=== PATIENT | female | born 1965 | race Caucasian/White ===

== ENCOUNTER 2023-06-08 08:47 | Emergency (ER) | payer BC, SELFPAY ==
--- NOTE | ~2023-06-08 | CT_ITS ---
EXAMINATION: CT cervical spine wo con DATE: 06/08/2023 12:12 INDICATION: Neck pain TECHNIQUE: Computed tomography (CT) of the cervical spine was performed without intravenous contrast. The dose-length product was 293 mGy-cm. Automated exposure control and iterative reconstruction tech [employer] were employed. COMPARISON: None FINDINGS: There is straightening of cervical lordosis. There is disc narrowing and endplate degenerat dar changes at C4-5 and C5-6 with dorsal osteophytosis. Craniovertebral junction is normal. Moderate multilevel uncinate hypertrophy. Mild levoscoliosis. Lung apices are normal. No paraspinal soft tissu e abnormality. Lung apices are normal. Craniovertebral junction is normal. No evidence for perched fa cet. Spinous processes are normal. IMPRESSION: 1. Moderate cervical spondylosis. Reviewed, dictated and finalized at location B. AFLUX OPERATOR
[2023-06-08 08:51] VITALS: BP 159/78; PULSE 109; RESP 20; TEMP 36.6; O2SAT 100
--- NOTE | 2023-06-08 11:58 | ED.BACK ---
HPI - Back Pain/Injury General Chief Complaint: Back Pain/Injury Stated Complaint: Back pain Time Seen by Provider: 06/08/23 11:22 History of Present Illness HPI Narrative: 57-year-old female with known history of sciatica, spinal stenosis, history of neck and shoulder pain reports for evaluation for neck pain that radiates into her left shoulder and down her left arm x3 days. States pain is worse with left lateral flexion and rotation of her neck. No worsening pain with movement of left upper extremity. Patient denies recent injury or trauma, weakness. She states she went to urgent care 2 days ago and was prescribed muscle relaxers and high-dose ibuprofen. States she has been taking these without improvement and reported to the ED for an x-ray. She denies fever, headache, nausea or vomiting, upper extremity weakness, saddle anesthesia, loss of bowel or bladder control or retention. Related Data Allergies Allergy/AdvReac Type Severity Reaction Status Date / Time moxifloxacin [From Avelox] AdvReac Vomiting Verified 06/08/23 08:50 Review of Systems Review of Systems: CONSTITUTIONAL: Denies fever, chills, or sweats. EYES: Denies visual changes, redness, or discharge. ENT: Denies rhinorrhea, congestion, sore throat, or otalgia. CARDIOVASCULAR: Denies chest pain, palpitations, or edema. RESPIRATORY: Denies cough or dyspnea. GASTROINTESTINAL: Denies abdominal pain, nausea, vomiting, or diarrhea. GENITOURINARY: Denies dysuria or hematuria. SKIN: Denies rash or itching. MUSCULOSKELETAL: See HPI NEUROLOGIC: Denies headache, numbness, or weakness. PSYCHIATRIC: Denies anxiety or depression. Exam Narrative: GENERAL: Well-appearing, well-nourished, and in no acute distress. HEAD: Normocephalic, atraumatic. NECK: Mild midline cervical spinous tenderness without step-offs or deformities. Tenderness into the left trapezius with palpable muscle spasm. No overlying skin changes. Neck Pain worse with left lateral flexion and rotation. CHEST: Clear to auscultation. No respiratory distress. HEART: Regular rate and rhythm. No murmur heard. Normal peripheral pulses. ABDOMEN: Soft, nontender, nondistended, normal active bowel sounds. EXTREMITIES: Left upper extremity with full range of motion. Axillary, median, ulnar and radial nerves intact. Sensation intact throughout. 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 Elbow flexion extension identified. SKIN: Warm, dry, no rash. NEURO: No focal deficits. Alert and oriented x3 Course Vital Signs Vital signs: Vital Signs Temperature 97.9 F 06/08/23 08:51 Pulse Rate 109 H 06/08/23 08:51 Respiratory Rate 20 06/08/23 08:51 Blood Pressure 159/78 H 06/08/23 08:51 Pulse Oximetry 100 06/08/23 08:51 Oxygen Delivery Room Air 06/08/23 08:51 Temperature 97.9 F 06/08/23 08:51 Pulse Rate 87 06/08/23 13:47 Respiratory Rate 16 06/08/23 13:47 Blood Pressure 122/74 06/08/23 13:47 Pulse Oximetry 100 06/08/23 13:47 Oxygen Delivery Room Air 06/08/23 08:51 MDM - Back Pain/Injury MDM Narrative Medical decision making narrative: 57-year-old female reports for evaluation for neck pain and left shoulder pain that radiates down her left arm. See HPI for further history. Vitals significant for elevated blood pressure and mild tachycardia 109, otherwise unremarkable. She is afebrile. Exam is consistent for the above. She is neurovascularly intact with no strength deficits. Exam and symptoms consistent with MSK etiology as opposed to infectious. CT cervical spine shows moderate cervical spondylosis. Patient received Flexeril, IM dexamethasone and topical lidocaine patch with improvement in symptoms. Imaging discussed. Plan to treat conservatively for cervical radiculopathy and muscle spasm and will have her follow-up with PCP and neurosurgery. Flexeril and lidocaine patches sent to pharmacy, encouraged Tylenol, heating pad and ibuprofen. Strict ED return precautions discussed. She is
[2023-06-08] MEDS: CYCLOBENZAPRINE HCL 10 MG TABLET PO (12:21)
[2023-06-08] MEDS: LIDOCAINE 5% PATCH 1 PATCH TRANSDERM (12:22)
[2023-06-08 13:47] VITALS: BP 122/74; PULSE 87; RESP 16; O2SAT 100
== END 2023-06-08 13:49 | disposition home or self-care (01) ==
PROVIDERS: Emergency Provider Physician Assistant
DX: M54.12 Radiculopathy, cervical region (principal); M62.838 Other muscle spasm
CPT/HCPCS: 72125; 96372; 99284; A9270; J1100

== ENCOUNTER 2023-11-19 07:33 | Outpatient (CLI) | payer BC, SELFPAY ==
--- NOTE | ~2023-11-19 | US_ITS ---
Limited Abdominal Sonogram: Real-time sonographic imaging of the right upper quadrant was performed. Clinical History: Hyperbilirubinemia Findings: The liver appears normal with no evidence of mass lesion or bile duct dilatation. Main por rikki vein demonstrates normal direction of flow. The gallbladder is well distended, and appears normal with no evidence of gallstone or wall thickening. The common bile duct measures 2 mm. The visualize d pancreas, aorta, and IVC are unremarkable. Right kidney measures 9.2 cm in length, without hydronep hrosis. Impression: No significant abnormality seen. Reviewed, dictated and finalized at location . Impression: No significant abnormality seen.
== END 2023-11-19 07:34 ==
PROVIDERS: PCP Internal Medicine Nephrology; Visit Provider Internal Medicine Nephrology
DX: I12.9 Hypertensive chronic kidney disease with stage 1 through stage 4 chronic kidney disease, or unspecified chronic kidney disease (principal); N18.1 Chronic kidney disease, stage 1; Q61.5 Medullary cystic kidney; E80.6 Other disorders of bilirubin metabolism
CPT/HCPCS: 76705